=== PATIENT | female | born 1990 | race Two or more races ===

== ENCOUNTER 2020-10-11 23:02 | Emergency (ER) | payer MEDICAID ==
[~2020-10-11] VITALS: Ht 157.5 cm; Wt 97.5 kg
[2020-10-12 00:25] VITALS: BP 118/75
[2020-10-12] MEDS ORDERED: CLINDAMYCIN 900MG IV 50 ML IV ONE (01:45)
[2020-10-12] MEDS ORDERED: PIPERACILLIN-TAZOB 3.375GM 100 ML IV ONE (02:00)
[2020-10-12] MEDS ORDERED: ONDANSETRON HCL 4 MG/2 ML VIAL IV ONE (03:00)
[2020-10-12] MEDS ORDERED: MORPHINE SULF INJ 2 MG/ML SYRINGE 1ML IV ONE (03:00)
[2020-10-12] MEDS ORDERED: FLUORESCEIN SOD OPTH TEST STRIP EACHEYE ONE (03:30)
[2020-10-12] MEDS ORDERED: TETRACAINE HCL 0.5% OPTH(EYE) SOLN 4ML EACHEYE ONE (03:30)
[2020-10-12] MEDS ORDERED: MORPHINE SULF INJ 2 MG/ML SYRINGE 1ML IM ONE (06:00)
[2020-10-12] MEDS ORDERED: KETOROLAC TROMETH 30 MG/ML 1ML VIAL IV ONE (06:15)
== END 2020-10-12 04:56 | disposition home or self-care (01) ==
LOC: ER 23:02
DX: L03.213 Periorbital cellulitis (principal)
CPT/HCPCS: 96365; 96366; 96367; 96375; 99284; J1885; J2270; J2405; J2543; J3490